=== PATIENT | male | born 1940 | race Caucasian/White ===

== ENCOUNTER 2016-08-07 10:30 | Emergency (ER) | payer OTHER, MEDICARE ==
[~2016-08-07 10:30] MED LIST: ASPIRIN81 MG PO; CEFTIN250 MG/5 M PO; COLACE 100MG C100 MG PO; COMBIVENT0.074 GM/I INH; FLOMAX 0.4 MG0.4 MG PO; IMDUR ER TAB 3030 MG PO; LOPRESSOR 50 MG50 MG PO; MIRALAX17 GM PO; NITROSTAT 0.40.4 MG SL; NORVASC 5 MG TAB5 MG PO; OXYCODONE HCL10 MG PO; PRILOSEC OTC20 MG PO; PROSCAR5 MG PO; PROVENTIL HFA 61 INH INH; RANEXA500 MG PO; SYMBICORT 160-1 INHA INH
[2016-08-07 11:09] LABS: HEMOGLOBIN 14.3 gm/dl (14.0-17.5); RED BLOOD COUNT 4.6 M/UL (4.20-5.50); WHITE BLOOD COUNT 13.5 K/UL (4.5-11.0)
== END 2016-08-07 14:50 | disposition home or self-care (01) ==
LOC: ER1 10:30
PROVIDERS: Emergency Medicine
DX: R07.89 Other chest pain (principal); R06.02 Shortness of breath; I25.10 Atherosclerotic heart disease of native coronary artery without angina pectoris; I10 Essential (primary) hypertension; F17.200 Nicotine dependence, unspecified, uncomplicated; Z88.1 Allergy status to other antibiotic agents
CPT/HCPCS: 36415; 71010; 80053; 82550; 82553; 83874; 84484; 85025; 93005; 99285

== ENCOUNTER → 2020-03-21 | Outpatient (CLI) | payer MEDICARE, OTHER ==
[~2020-03-21] MED LIST changes: +ACIDOPHILUS1 EAC3 PO; +ASPIRIN EC81 MG PO; +BACTROBAN OINT22 GM EXT; +BRILINTA 90 MG90 MG PO; +CEFPODOXIME PR200 MG PO; +CEFUROXIME500 MG PO; +COZAAR 25MG TAB25 MG PO; +ELIQUIS2.5 MG PO; +ETODOLAC400 MG PO; +FUROSEMIDE20 MG PO; +IPRAT-ALBUT 0.5-3 ML INH; +ISORDIL TAB 2020 MG PO; +KEFLEX500 MG PO; +LEVAQUIN750 MG PO; +MEDROL4 MG PO; +NORVASC2.5 MG PO; +OMNICEF 300 MG300 MG PO; +PREDNISONE 50 M50 MG PO; +PROAIR HFA8.5 GM INH; -PROVENTIL HFA 61 INH INH; +ROBAXIN-750750 MG PO; +SENNA8.6 MG PO; +THEOPHYLLINE600 MG PO; +ZETIA 10 MG TAB10 MG PO; +ZOFRAN4 MG PO
== END ==
LOC: CT 11:44
DX: C34.11 Malignant neoplasm of upper lobe, right bronchus or lung (principal); K86.89 Other specified diseases of pancreas; R91.8 Other nonspecific abnormal finding of lung field
CPT/HCPCS: 36415; 71260; 82565; 84520; Q9963

== ENCOUNTER 2020-08-07 22:13 | Inpatient (IN) | payer MEDICARE, MEDICAID ==
[~2020-08-07] VITALS: Ht 167.6 cm; Wt 61.7 kg
[2020-08-07 23:00] LABS: HEMOGLOBIN 12.2 gm/dl (14.0-17.5); RED BLOOD COUNT 3.73 M/UL (4.20-5.50); WHITE BLOOD COUNT 24.1 K/UL (4.5-11.0)
[2020-08-07 23:18] LABS: BUN/CREATININE RATIO 17 (0-10)
[2020-08-09 04:32] LABS: HEMOGLOBIN 10.7 gm/dl (14.0-17.5); RED BLOOD COUNT 3.41 M/UL (4.20-5.50); WHITE BLOOD COUNT 26.7 K/UL (4.5-11.0)
[2020-08-09 04:45] LABS: BUN/CREATININE RATIO 20 (0-10)
[2020-08-10 03:36] LABS: HEMOGLOBIN 10.3 gm/dl (14.0-17.5); RED BLOOD COUNT 3.22 M/UL (4.20-5.50); WHITE BLOOD COUNT 22.4 K/UL (4.5-11.0)
[2020-08-10 03:52] LABS: BUN/CREATININE RATIO 24 (0-10)
[2020-08-10] MEDS ORDERED: MEDROL4 MG PO (11:28)
== END 2020-08-10 13:11 | disposition home or self-care (01) | DRG 189 ==
LOC: ER1 22:13 → CDU 08-08 04:22 → MED SURG 4 08-08 06:22 → CDU 08-08 06:22 → MED SURG 4 08-08 08:14
PROVIDERS: Internal Medicine; Physician Assistant; Physician Assistant Medical; ADMIT Internal Medicine
DX: J96.01 Acute respiratory failure with hypoxia (principal); J44.0 Chronic obstructive pulmonary disease with (acute) lower respiratory infection; J44.1 Chronic obstructive pulmonary disease with (acute) exacerbation; I50.22 Chronic systolic (congestive) heart failure; D72.829 Elevated white blood cell count, unspecified; Z85.118 Personal history of other malignant neoplasm of bronchus and lung; Z85.828 Personal history of other malignant neoplasm of skin; I48.0 Paroxysmal atrial fibrillation; I11.0 Hypertensive heart disease with heart failure; F17.210 Nicotine dependence, cigarettes, uncomplicated; Z20.822 Contact with and (suspected) exposure to COVID-19; Z79.899 Other long term (current) drug therapy; Z90.5 Acquired absence of kidney; I73.9 Peripheral vascular disease, unspecified; Z95.820 Peripheral vascular angioplasty status with implants and grafts; N40.0 Benign prostatic hyperplasia without lower urinary tract symptoms; E78.5 Hyperlipidemia, unspecified; Z80.0 Family history of malignant neoplasm of digestive organs; Z82.49 Family history of ischemic heart disease and other diseases of the circulatory system; I25.10 Atherosclerotic heart disease of native coronary artery without angina pectoris; Z95.5 Presence of coronary angioplasty implant and graft; K40.91 Unilateral inguinal hernia, without obstruction or gangrene, recurrent
CPT/HCPCS: 36415; 36600; 71045; 71046; 80048; 80053; 82550; 82553; 82803; 83874; 83880; 84484; 85025; 87070; 87205; 93005; 94640; 94664; 94760; 96374; 96375; 99285; J0456; J0696; J1650; J2920; J2930; J7030; U0002

== ENCOUNTER 2021-08-13 10:08 | Emergency (ER) | payer MEDICARE, OTHER ==
[2021-08-13 11:36] LABS: HEMOGLOBIN 13.8 gm/dl (14.0-17.5); RED BLOOD COUNT 4.26 M/UL (4.20-5.50); WHITE BLOOD COUNT 8.9 K/UL (4.5-11.0)
[2021-08-13 12:06] LABS: BUN/CREATININE RATIO 16 (0-10)
== END 2021-08-13 15:40 | disposition home or self-care (01) ==
LOC: ER1 10:08
PROVIDERS: Emergency Medicine
DX: R07.9 Chest pain, unspecified (principal); I25.10 Atherosclerotic heart disease of native coronary artery without angina pectoris; I25.2 Old myocardial infarction; E78.5 Hyperlipidemia, unspecified; I10 Essential (primary) hypertension; J44.9 Chronic obstructive pulmonary disease, unspecified; F17.210 Nicotine dependence, cigarettes, uncomplicated; Z95.5 Presence of coronary angioplasty implant and graft; Z90.5 Acquired absence of kidney; Z88.2 Allergy status to sulfonamides; Z88.5 Allergy status to narcotic agent; Z88.8 Allergy status to other drugs, medicaments and biological substances
CPT/HCPCS: 71045; 80053; 82550; 82553; 84484; 85025; 93005; 94664; 99285

== ENCOUNTER → 2021-10-08 | Outpatient (CLI) | payer MEDICARE | LOC: HEART 5 13:31 | DX: J44.9 Chronic obstructive pulmonary disease, unspecified (principal) | CPT/HCPCS: 94060; 94729 ==

== ENCOUNTER 2021-10-14 18:28 | Emergency (ER) | payer MEDICARE ==
[2021-10-14 19:46] LABS: HEMOGLOBIN 13.7 gm/dl (14.0-17.5); RED BLOOD COUNT 4.22 M/UL (4.20-5.50); WHITE BLOOD COUNT 9.6 K/UL (4.5-11.0)
[2021-10-14 20:16] LABS: BUN/CREATININE RATIO 22 (0-10)
[2021-10-14] MEDS ORDERED: ZOFRAN ODT 4 MG4 MG PO (23:07)
[2021-10-14] MEDS ORDERED: OMNICEF 300 MG300 MG PO (23:07)
== END 2021-10-14 23:21 | disposition home or self-care (01) ==
LOC: ER1 18:28
PROVIDERS: Physician Assistant
DX: K40.90 Unilateral inguinal hernia, without obstruction or gangrene, not specified as recurrent (principal); N39.0 Urinary tract infection, site not specified; F17.210 Nicotine dependence, cigarettes, uncomplicated; I11.9 Hypertensive heart disease without heart failure; E78.5 Hyperlipidemia, unspecified; I25.2 Old myocardial infarction; Z88.8 Allergy status to other drugs, medicaments and biological substances; J44.9 Chronic obstructive pulmonary disease, unspecified
CPT/HCPCS: 80053; 81001; 83690; 85025; 94664; 96374; 99284; J0696; Q9967